=== PATIENT | male | born 1955 | race Caucasian/White ===

== ENCOUNTER 2017-06-30 19:52 | Emergency (ER) | payer BC ==
[~2017-06-30] VITALS: Ht 188 cm; Wt 115.3 kg
[~2017-06-30 19:52] MED LIST: AMLODIPINE BESY10 MG PO; ASPIR-LOW81 MG PO; ATORVASTATIN CA40 MG PO; CHILDREN'S ASPI81 M1; CHLORDIAZEPOXID25 MG PO; DAILY VALUE1 EACH PO; Ecotrin PO; FOLIC ACID1 MG PO; HYDRALAZINE HCL10 MG PO; LOPRESSOR25 MG PO; LOSARTAN POTAS100 MG PO; Lipitor PO; Lopressor PO; NAPROSYN500 MG PO; NICOTINE PATCH1 EAC2 TD; NITROSTAT0.4 MG SL; NO HOME MEDS; NORVASC10 MG PO; Norvasc PO; Plavix PO; THERAGRAN1 TABLET PO; Thiamine,Vitamin B1 PO; VALIUM5 MG PO; VITAMIN B-1100 MG PO
[2017-06-30 20:45] LABS: HEMATOCRIT 39.8 % (38.0-50.0); HEMOGLOBIN 13.9 G/DL (12.5-16.6); MCH 31.6 PG (29.0-34.0); MCHC 34.9 G/DL (30.0-36.0); MCV 90.5 FL (86-99); PLATELET COUNT 323 K/uL (156-360); RBC DIS.WIDTH-CV 13.4 % (11.8-14.6); RBC DIS.WIDTH-SD 44.2 % (39-53); WHITE BLOOD COUNT 19.3 K/uL (4.1-10.2)
[2017-06-30 21:41] LABS: CHLORIDE 109 mEq/L (99-109); POTASSIUM 3.3 mEq/L (3.7-5.4); SODIUM 146 mEq/L (136-147)
[2017-06-30 21:42] LABS: GLUCOSE 136 mg/dL (70-99)
[2017-06-30 21:46] LABS: CREATININE 1.6 mg/dL (0.6-1.3); GFR ESTIMATE (CALCULATED) 46 mL/min/ (58.99-99999)
[2017-06-30 21:47] LABS: UREA NITROGEN (BUN) 17 mg/dL (9-23)
[2017-06-30 21:55] LABS: TROP-I INTERPRETATION NEGATIVE; TROPONIN-I 0.02 ng/mL (0.0-0.30)
[2017-06-30] MEDS ORDERED: PRILOSEC20 MG PO (23:06)
[2017-07-01 01:04] VITALS: BP 128/85
== END 2017-07-01 01:06 | disposition home or self-care (01) ==
LOC: EME 19:52
PROVIDERS: Emergency Medicine Emergency Medical Services
DX: R07.9 Chest pain, unspecified (principal); K21.0 Gastro-esophageal reflux disease with esophagitis; F10.239 Alcohol dependence with withdrawal, unspecified; K80.20 Calculus of gallbladder without cholecystitis without obstruction; I87.2 Venous insufficiency (chronic) (peripheral); I71.2 Thoracic aortic aneurysm, without rupture; I25.10 Atherosclerotic heart disease of native coronary artery without angina pectoris; I10 Essential (primary) hypertension; I25.2 Old myocardial infarction; Z95.5 Presence of coronary angioplasty implant and graft; Z79.82 Long term (current) use of aspirin; Z87.891 Personal history of nicotine dependence
CPT/HCPCS: 71045; 71275; 80048; 84484; 85027; 93005; 99281; 99285; J0780; J2060; J2270; J2405